=== PATIENT | female | born 1960 | race Caucasian/White ===

== ENCOUNTER → 2019-04-30 | Outpatient (CLI) | payer OTHER ==
[~2019-04-30] MED LIST: ALBU.083IS IH; BECL40OI INH; DICY20 PO; ESCI10 PO; HYDACE5 PO; HYDCHL25 PO; OXYACE5T PO; OXYC5 PO; Omeprazole20 M1 PO; PROM25 PO; Prinivil10 MG PO
== END | disposition home or self-care (01) ==
LOC: LAB EV 16:05 → LAB SHORT 16:05
DX: B37.2 Candidiasis of skin and nail (principal)
CPT/HCPCS: 87070; 87205

== ENCOUNTER 2020-04-17 09:48 | Emergency (ER) | payer OTHER ==
[~2020-04-17] VITALS: Ht 167.6 cm; Wt 99.8 kg
[~2020-04-17 09:48] MED LIST changes: +ACET500 PO; +ALBU90OI INH; +AMLO5 PO; +Aspirin EC81 MG PO; +DIPHENHYDRAMINE PO; +DULO60 PO; +ESCI20 PO; +FLUT1DIS5 INH; +Fish Oil 10001000 MG PO; +MULTI-VITAMIN1 EAC2 PO; +OMEPRAZOLE20 MG PO; +POTCHL20ER PO; +TIZA4 PO
[2020-04-17 10:37] LABS: BASOPHILS ABSOLUTE AUTO 0.05 K/mm3 (0.00-0.23); BASOPHILS PERCENT AUTO 1 % (0-2); EOSINOPHILS ABSOLUTE AUTO 0.11 K/mm3 (0.00-0.68); EOSINOPHILS PERCENT AUTO 2 % (0-6); Hemoglobin 13.5 g/dL (11.5-16.0); IMMATURE GRAN ABSOLUTE AUTO 0.01 K/mm3 (0.00-0.10); IMMATURE GRAN PERCENT AUTO 0 % (0-1); LYMPHOCYTES ABSOLUTE AUTO 1.19 K/mm3 (0.84-5.20); LYMPHOCYTES PERCENT AUTO 20 % (21-46); MONOCYTES ABSOLUTE AUTO 0.44 K/mm3 (0.16-1.47); MONOCYTES PERCENT AUTO 7 % (4-13); Mean Corpuscular HGB 31.6 pg (26.0-34.0); Mean Corpuscular HGB Conc 32.9 g/dL (31.5-36.5); Mean Corpuscular Volume 96 fL (80-100); Mean Platelet Volume 9.3 fL (9.1-12.4); NEUTROPHILS ABSOLUTE AUTO 4.13 K/mm3 (1.96-9.15); NEUTROPHILS PERCENT AUTO 70 % (41-73); Platelet Count 364 K/mm3 (150-400); RDW Coefficient Variation 12.9 % (11.7-14.2); Red Blood Cell Count 4.27 M/mm3 (3.80-5.20); White Blood Cell Count 5.93 K/mm3 (4.00-11.30)
[2020-04-17] MEDS ORDERED: METOPROLOL SUCC25 MG PO (10:38)
[2020-04-17] MEDS ORDERED: Singulair10 MG PO (10:39)
[2020-04-17 10:52] LABS: Alanine Aminotransfer (ALT/SGP 64 U/L (12-78); Albumin, Blood 3.8 g/dL (3.4-5.0); Albumin/Globulin Ratio 1.1 (0.8-1.8); Alk Phos 88 U/L (50-136); Anion Gap 4 mmol/L (6-16); Aspartate Aminotrans (AST/SGOT 32 U/L (12-37); Bilirubin, Total 0.6 mg/dL (0.1-1.0); Blood Urea Nitrogen 8 mg/dL (8-24); Bun/Creatinine Ratio 12.5 (12.0-20.0); CO2, Blood 30 mmol/L (21-32); Calcium, Blood 9.2 mg/dL (8.5-10.1); Chloride, Blood 107 mmol/L (98-108); Creatinine, Blood 0.64 mg/dL (0.40-1.00); Globulin, Blood 3.4 g/dL (2.2-4.0); Glomerular Filtration Rate >60 (60-); Glucose, Blood 75 mg/dL (70-99); Potassium, Blood 3.9 mmol/L (3.5-5.5); Sodium, Blood 141 mmol/L (136-145); Total Protein, Blood 7.2 g/dL (6.4-8.2); Troponin I <0.015 ng/mL (0.000-0.040)
[2020-04-17 11:22] LABS: Source, Urine Voided
[2020-04-17 11:43] LABS: Bilirubin, Urine Neg (Neg); Blood, Urine Neg (Neg); Glucose Qualitative, Urine Neg (Neg); Ketones, Urine Neg (Neg); Leukocyte Esterase, Urine Neg (Neg); Nitrite, Urine Neg (Neg); Protein, Urine Neg (Neg); Specific Gravity, Urine 1.015 (1.003-1.022); Urobilinogen, Urine NORM (Normal)
[2020-04-17 12:18] LABS: Color, Urine Yellow (P-Yellow)
[2020-04-17 12:19] LABS: Appearance, Urine Clear (Clear)
[2020-04-17] MEDS ORDERED: Pepcid20 MG PO (15:16)
[2020-04-17] MEDS ORDERED: Aspirin EC81 MG PO (15:16)
== END 2020-04-17 15:29 | disposition home or self-care (01) ==
LOC: ER 09:48
PROVIDERS: Emergency Medicine
DX: R07.9 Chest pain, unspecified (principal); M54.2 Cervicalgia; D27.1 Benign neoplasm of left ovary; D27.0 Benign neoplasm of right ovary; R91.8 Other nonspecific abnormal finding of lung field; Z87.891 Personal history of nicotine dependence; Z79.899 Other long term (current) drug therapy; Z79.82 Long term (current) use of aspirin
CPT/HCPCS: 36415; 71275; 74174; 80053; 81003; 83690; 84484; 85025; 85379; 93005; 93010; 99285-25; A9270-GY; Q9967

== ENCOUNTER → 2020-05-23 | Outpatient (CLI) | payer OTHER ==
[~2020-05-23] MED LIST changes: +METOPROLOL SUCC25 MG PO; +Pepcid20 MG PO; +Singulair10 MG PO
[2020-05-24 16:07] LABS: HPV 16 Negative (Negative); HPV 18 Negative (Negative); HPV OTHER HR TYPES Negative (Negative)
== END | disposition home or self-care (01) ==
LOC: LAB SHORT 13:31 → LAB 13:31
PROVIDERS: Obstetrics & Gynecology
DX: Z01.419 Encounter for gynecological examination (general) (routine) without abnormal findings (principal)
CPT/HCPCS: 87624; G0123

== ENCOUNTER 2020-12-08 10:31 | Day surgery (SDC) | payer OTHER ==
[~2020-12-08] VITALS: Ht 170.2 cm; Wt 91.6 kg
--- NOTE | 2020-12-08 12:19 | NUR ---
12/08/20 1219 Heather Ruiz THIN LINE OF SLIGHTLEY REDDENED AREA (MAYBE YEAST) NOTED UNDER PATIENTS CREASEON PANUS.SURGEON AWARE
== END 2020-12-08 14:00 | disposition home or self-care (01) ==
LOC: ORSCSDS 10:31
DX: D27.1 Benign neoplasm of left ovary (principal); D27.0 Benign neoplasm of right ovary; I10 Essential (primary) hypertension; J45.909 Unspecified asthma, uncomplicated; Z79.899 Other long term (current) drug therapy; Z87.891 Personal history of nicotine dependence
CPT/HCPCS: 88305; 88311; J0171; J1100; J1885; J2250; J2405; J2704; J2710; J3010

== ENCOUNTER 2021-05-09 10:51 | Emergency (ER) | payer OTHER ==
[~2021-05-09] VITALS: Ht 167.6 cm; Wt 93.0 kg
[2021-05-09 11:31] LABS: BASOPHILS ABSOLUTE AUTO 0.03 K/mm3 (0.00-0.23); BASOPHILS PERCENT AUTO 0 % (0-2); EOSINOPHILS PERCENT AUTO 0 % (0-6); Hematocrit 42.4 % (33.0-51.0); Hemoglobin 14.3 g/dL (11.5-16.0); IMMATURE GRAN ABSOLUTE AUTO 0.02 K/mm3 (0.00-0.10); IMMATURE GRAN PERCENT AUTO 0 % (0-1); LYMPHOCYTES ABSOLUTE AUTO 0.93 K/mm3 (0.84-5.20); LYMPHOCYTES PERCENT AUTO 11 % (21-46); MONOCYTES PERCENT AUTO 4 % (4-13); Mean Corpuscular HGB 32.8 pg (26.0-34.0); Mean Corpuscular HGB Conc 33.7 g/dL (31.5-36.5); Mean Corpuscular Volume 97 fL (80-100); Mean Platelet Volume 9.1 fL (9.1-12.4); NEUTROPHILS ABSOLUTE AUTO 7.18 K/mm3 (1.96-9.15); NEUTROPHILS PERCENT AUTO 85 % (41-73); Platelet Count 391 K/mm3 (150-400); RDW Coefficient Variation 12.6 % (11.7-14.2); RDW Standard Deviation 45.1 fL (35.1-46.3); Red Blood Cell Count 4.36 M/mm3 (3.80-5.20); White Blood Cell Count 8.46 K/mm3 (4.00-11.30)
[2021-05-09 11:49] LABS: Alanine Aminotransfer (ALT/SGP 46 U/L (12-78); Albumin, Blood 3.8 g/dL (3.4-5.0); Alk Phos 94 U/L (50-136); Anion Gap 5 mmol/L (6-16); Aspartate Aminotrans (AST/SGOT 30 U/L (12-37); Bilirubin, Total 0.7 mg/dL (0.1-1.0); Blood Urea Nitrogen 9 mg/dL (8-24); Bun/Creatinine Ratio 17.1 (12.0-20.0); CO2, Blood 26 mmol/L (21-32); Calcium, Blood 9.4 mg/dL (8.5-10.1); Chloride, Blood 107 mmol/L (98-108); Creatinine, Blood 0.53 mg/dL (0.40-1.00); Globulin, Blood 3.7 g/dL (2.2-4.0); Glomerular Filtration Rate >60 (60-); Glucose, Blood 114 mg/dL (70-99); Sodium, Blood 138 mmol/L (136-145); Total Protein, Blood 7.5 g/dL (6.4-8.2)
[2021-05-09] MEDS ORDERED: DOCU100 PO (12:59)
[2021-05-09] MEDS ORDERED: BISA10S PR (12:59)
== END 2021-05-09 14:55 | disposition home or self-care (01) ==
LOC: ER 10:51
PROVIDERS: Emergency Medicine
DX: K59.00 Constipation, unspecified (principal); Z79.899 Other long term (current) drug therapy; Z79.82 Long term (current) use of aspirin; Z87.891 Personal history of nicotine dependence
CPT/HCPCS: 36415; 74177; 80053; 85025; 99284-25; A9270; J7030; Q9967

== ENCOUNTER 2022-02-02 06:00 | Day surgery (SDC) | payer OTHER ==
[~2022-02-02] VITALS: Ht 170.2 cm; Wt 100.3 kg
[~2022-02-02 06:00] MED LIST changes: +BISA10S PR; +Cyclobenzaprine5 MG PO; +DOCU100 PO; +FOLI1 PO; +LIDO5TO TOP; +MELA3 PO; +METO25ER PO; +MONT10T PO; +Robaxin750 MG PO; +TOPIRAMATE ER50 MG PO; +TRAZ50 PO; +VITAMIN D2 PO
--- NOTE | 2022-02-02 07:20 | NUR ---
History, Chart, Medications and Allergies reviewed before start of procedure. Patient confirms NPO status and agrees with scheduled surgery. Lungs clear T/O to Auscultation. Patient States Post-Procedure ride home has been arranged with her sister, [place].
--- NOTE | 2022-02-02 12:04 | NUR ---
PT QUITE OFTEN BENDS ARMS AND PUTS THEM BEHIND HER HEAD GIVING FALSE REULTS ON MONITOR ENC NOT TO DO THIS
--- NOTE | 2022-02-02 12:06 | NUR ---
PT HAS SNORING RESP EVEN WHEN AWAKE AT TIMES, SHE STATES THIS IS NOT NEW FOR HER AND THAT SHE HAS NOT TALKED WITH HER DR ABOUT IT ENC TO DO SO
--- NOTE | 2022-02-02 13:45 | NUR ---
REPORT FROM DEMARCO SANTIAGO RN. PT RESTING COMFORTABLY IN BED, RESPONDS TO VERBAL STIMULI. WAITING FOR SISTER TO RETURN FOR RIDE HOME AND DISCHARGE.
--- NOTE | 2022-02-02 15:06 | NUR ---
PT BEEN UP TO AMBULATE TO BATHROOM, FEELS SHE IS HAVING GAS PAIN. Patient up to Ambulate independently. Gait steady. Discharge instructions reviewed with patient. Patient verbalizes understanding. Copy given to patient to take home. Patient States Post-Procedure ride home has been arranged. PT WAITING TO GO HOME AFTER 2ND PAIN MEDICATION STARTS WORKING. PT REPORTS PAIN DOING BETTER, WISHES TO HAVE 2ND PAIN MEDICATION FOR THE RIDE HOME. REPORT GIVEN TO David WHO IS ASSUMING CARE OF PT. SISTER AT BEDSIDE WHEN DISCHARGE INSTRUCTIONS WERE GIVEN. PT HAVING PUDDING PER HER REQ.
--- NOTE | 2022-02-02 15:35 | NUR ---
Patient up to Ambulate independently. Gait steady. Discharge instructions reviewed with patient. Patient verbalizes understanding. Copy given to patient to take home. Patient States Post-Procedure ride home has been arranged. Dressing to procedure site clean, dry, intact with no visible drainage, swelling, erythema or bruising noted. Discharged via wheelchair to private car for ride home. ALL BELONGINGS RETURNED TO PATIENT.
== END 2022-02-02 23:36 | disposition home or self-care (01) ==
LOC: ORSCMMR 06:00 → ORD 07:30 → ORSCMMR 07:30
PROVIDERS: Surgery
PROC: 8E0W4CZ Robotic Assisted Procedure of Trunk Region, Percutaneous Endoscopic Approach (ICD-10-PCS; principal; 2022-02-02 07:30)
PROC: 0WUF4JZ Supplement Abdominal Wall with Synthetic Substitute, Percutaneous Endoscopic Approach (ICD-10-PCS; principal; 2022-02-02 07:30)
PROC: 0DNW4ZZ Release Peritoneum, Percutaneous Endoscopic Approach (ICD-10-PCS; principal; 2022-02-02 07:30)
DX: K43.2 Incisional hernia without obstruction or gangrene (principal); K66.0 Peritoneal adhesions (postprocedural) (postinfection); I10 Essential (primary) hypertension; J44.9 Chronic obstructive pulmonary disease, unspecified; Z87.891 Personal history of nicotine dependence; Z79.899 Other long term (current) drug therapy; E66.9 Obesity, unspecified; Z68.34 Body mass index [BMI] 34.0-34.9, adult; Z98.84 Bariatric surgery status
CPT/HCPCS: 49654; 49329; S2900; A9270; C1781; J0690; J1100; J1885; J2250; J2405; J2704; J3010; J7120